=== PATIENT | male | born 1970 ===

== ENCOUNTER 2022-05-15 11:38 | Observation (INO) | payer SELFPAY ==
[2022-05-15] MEDS ORDERED: Nitroglycerin 0.4 MG TAB (25 Tab Bottle) SL PRN (16:50)
[2022-05-15] MEDS ORDERED: Morphine 2 MG/ML VIAL SLOW IVP PRN (16:52)
[2022-05-15] MEDS ORDERED: Cyclobenzaprine 10 MG TAB PO PRN (17:16)
[2022-05-15] MEDS ORDERED: Cyclobenzaprine 10 MG TAB PO SCH (17:30)
[2022-05-15] MEDS: Sodium Chloride 0.9% 1,000 ML IV SCH (17:56)
[2022-05-15 17:57] LABS: Troponin I Less than 0.010 ng/mL (< 0.028)
[2022-05-15 18:06] VITALS: BMI 31.1
[2022-05-15] MEDS ORDERED: Transdermal Patch Removal TOP SCH (21:00)
[2022-05-15] MEDS: Metoprolol Tartrate 25 MG TAB PO SCH (21:07)
[2022-05-15 21:55] LABS: Troponin I Less than 0.010 ng/mL (< 0.028)
[2022-05-15 23:02] LABS: Amphetamine Not Detected (NotDetected); Barbiturates Screen Not Detected (NotDetected); Benzodiazepine Screen Not Detected (NotDetected); Cocaine Metabolite Screen Not Detected (NotDetected); Methadone Not Detected (NotDetected); Methamphetamine Not Detected (NotDetected); Opiate Screen Detected (NotDetected); Oxycodone Screen Not Detected (NotDetected); Phencyclidine (PCP) Not Detected (NotDetected); THC/Cannabinoid Screen Not Detected (NotDetected); Tricyclic Screen Not Detected (NotDetected)
[2022-05-16] MEDS: Sodium Chloride 0.9% 1,000 ML IV SCH ×2 (00:40→10:56)
[2022-05-16 05:06] LABS: Cardiac Risk 3.2 (Less than 4.5)
[2022-05-16] MEDS ORDERED: Enoxaparin Sodium 40 MG/0.4 ML SYRINGE SC SCH (09:00)
[2022-05-16] MEDS ORDERED: Aspirin Chewable 81 MG TAB PO SCH (09:00)
[2022-05-16] MEDS ORDERED: Lidocaine 5% Patch TD SCH (09:00)
[2022-05-16] MEDS: Metoprolol Tartrate 25 MG TAB PO SCH (10:56)
[2022-05-16] MEDS ORDERED: ADENOSINE 60 MG/20 ML VIAL ONE (13:57)
[2022-05-16 14:05] VITALS: BP 139/77; TEMP 99.1
== END 2022-05-16 13:42 | disposition home or self-care (01) ==
LOC: 2SW 11:38
PROVIDERS: ADMIT Internal Medicine; ATTEND Internal Medicine
DX: M54.6 Pain in thoracic spine (principal); F17.220 Nicotine dependence, chewing tobacco, uncomplicated; D72.829 Elevated white blood cell count, unspecified; Z20.822 Contact with and (suspected) exposure to COVID-19; Z88.0 Allergy status to penicillin
CPT/HCPCS: 36415; 72146; 78452; 80061; 80306; 93017; 94760; 96360; 96361; 96372; A9500; G0378; J0153; J1650; J7050; U0003; U0005